=== PATIENT | male | born 1960 | race Caucasian/White ===

== ENCOUNTER 2017-08-19 12:51 | Emergency (ER) | payer OTHER ==
[2017-08-19 13:32] VITALS: BP 141/77
--- NOTE | 2017-08-19 14:03 | EDM.PDOC ---
ED HPI GENERAL MEDICAL PROBLEM - General Chief Complaint: Genitourinary Problem Stated Complaint: [id number] ROLANDO STRONG Time Seen by Provider: 08/19/17 13:38 Source of Information: Reports: Patient History Limitations: Reports: No Limitations - History of Present Illness INITIAL COMMENTS - FREE TEXT/NARRATIVE: Pt presents to the ER with c/o urinary retention. He states that in the past he has had an indwelling catheter and was taking Flomax and Tamulosin. He states the catheter was discontinued, and he was told that he was too young to be taking the prostate medications. These medications were discontinued about 1 year ago according to the patient. He states he has not urinated since 10pm last night. He states he doctors with the ID but they were out of the office today when he called. Onset: Today, Gradual Location: Reports: Abdomen Quality: Reports: Pressure Severity: Moderate Improves with: Reports: None Worsens with: Reports: None Associated Symptoms: Reports: No Other Symptoms Bladder Pain Score (Numeric/FACES): 7 - Related Data Allergies Allergy/AdvReac Type Severity Reaction Status Date / Time mushroom Allergy Vomiting Verified 08/19/17 13:04 Home Meds: Home Meds Ibuprofen [Advil] 200 mg PO Q6H PRN 04/23/16 [History] Past Medical History - Past Health History Medical/Surgical History: Denies Medical/Surgical History HEENT History: Reports: Hard of Hearing, Impaired Vision Cardiovascular History: Reports: None, High Cholesterol Respiratory History: Reports: None Gastrointestinal History: Reports: None Genitourinary History: Reports: BPH Musculoskeletal History: Reports: None Neurological History: Reports: None Psychiatric History: Reports: None Endocrine/Metabolic History: Reports: Other (See Below) Other Endocrine/Metabolic History: Hyperglycemia. Impaired glucose tolerance Hematologic History: Reports: None Immunologic History: Reports: None Oncologic (Cancer) History: Reports: None Dermatologic History: Reports: Other (See Below) Other Dermatologic History: Fascial cyst - Infectious Disease History Infectious Disease History: Reports: Chicken Pox - Past Surgical History GI Surgical History: Reports: Colonoscopy Dermatological Surgical History: Reports: Other (See Below) Social & Family History - Family History Family Medical History: Noncontributory - Tobacco Use Smoking Status *Q: Current Every Day Smoker Years of Tobacco use: 40 Packs/Tins Daily: 1 Second Hand Smoke Exposure: Yes - Caffeine Use Caffeine Use: Reports: Coffee - Alcohol Use Days Per Week of Alcohol Use: 0 - Recreational Drug Use Recreational Drug Use: No ED ROS GENERAL - Review of Systems Review Of Systems: ROS reveals no pertinent complaints other than HPI. ED EXAM, RENAL/ - Physical Exam Exam: See Below Exam Limited By: No Limitations General Appearance: Alert, WD/WN, No Apparent Distress Eye Exam: Bilateral Eye: Normal Inspection Ears: Normal External Exam, Hearing Grossly Normal Nose: Normal Inspection Throat/Mouth: Normal Inspection, Normal Oropharynx, Normal Voice, No Airway Compromise Head: Atraumatic, Normocephalic Neck: Normal Inspection, Supple, Non-Tender, Full Range of Motion Respiratory/Chest: No Respiratory Distress, No Accessory Muscle Use, Chest Non- Tender, Decreased Breath Sounds Cardiovascular: Normal Peripheral Pulses, Regular Rate, Rhythm, No Edema, No Gallop, No JVD, No Murmur, No Rub GI/Abdominal: Normal Bowel Sounds, Soft, Tender (Male) Exam: Normal Inspection Rectal (Males) Exam: Deferred Back Exam: Normal Inspection, Full Range of Motion Extremities: Normal Inspection, Normal Range of Motion, Non-Tender, No Pedal Edema, Normal Capillary Refill Neurological: Alert, Oriented, Normal Cognition, Normal Gait, Normal Reflexes, No Motor/Sensory Deficits Psychiatric: Normal Affect, Normal Mood Skin Exam: Warm, Dry, Intact, Normal Color, No Rash Lymphatic: No Adenopathy Course - Vital Signs Last Recorded V/S: Last Vital Signs Temp 98.3 F 08/19/17 13:15 Pulse 83 08/19/17 13:15 Resp 18 08/19/17 13:15 BP 141/77 H 08/19/17 13:15 Pulse Ox 98 08/19/17 13:15 - Orders/Labs/Meds Orders: Active Orders 24 hr Category Date Time Status Urinary Catheter Assessment [RC] ASDIRECTED Care 08/19/17 14:21 Active Labs: Laboratory Tests 08/19/17 Range/Units 14:05 Urine Color Yellow (YELLOW) Urine Appearance Slightly cloudy (CLEAR) Urine pH 5.5 (5.0-9.0) Ur Specific [place] 1.015 (1.005-1.030) Urine Protein Negative (NEGATIVE) Urine Glucose (UA) Negative (NEGATIVE) Urine Ketones Trace H (NEGATIVE) Urine Occult Blood Moderate H (NEGATIVE) Urine Nitrite Negative (NEGATIVE) Urine Bilirubin Negative (NEGATIVE) Urine Urobilinogen 0.2 (0.2-1.0) mg/dL Ur Leukocyte Esterase Negative (NEGATIVE) Urine RBC 50-75 H /HPF Urine WBC 0-5 (0-5/HPF) /HPF Ur Epithelial Cells Rare /HPF Urine Bacteria Rare (0-FEW/HPF) /HPF Departure - Departure Time of Disposition: 14:02 Disposition: Home, Self-Care 01 Condition: Good Clinical Impression: Retention of urine - Discharge Information Instructions: [facility] C[facility]ter Care, Adult Forms: ED Department Discharge Additional Instructions: [facility] - My Orders Last 24 Hours: My Active Orders 08/19/17 14:21 Urinary Catheter Assessment [RC] ASDIRECTED - Assessment/Plan Last 24 Hours: My Active Orders 08/19/17 14:21 Urinary Catheter Assessment [RC] ASDIRECTED
== END 2017-08-19 14:24 | disposition home or self-care (01) ==
LOC: DL.ED 12:51
DX: R33.9 Retention of urine, unspecified (principal); E78.00 Pure hypercholesterolemia, unspecified; F17.210 Nicotine dependence, cigarettes, uncomplicated; Z91.048 Other nonmedicinal substance allergy status
CPT/HCPCS: 51702; 81001; 99283

== ENCOUNTER → 2018-10-28 | Day surgery (SDC) | payer OTHER ==
[~2018-10-28] MED LIST: Acetaminophen/oxyCODONE 325-5 MG Tab PO ONE; Lactated Ringers 1,000 ML IV SCH; Lidocaine 1% 30 ML SDV INJECT ONE; Lidocaine 1% 30 ML SDV ONE; ceFAZolin 1 GM in Premix Bag 1 BAG IV ONE
--- NOTE | 2018-10-28 14:18 | OR ---
DATE: 10/28/2018 PREOPERATIVE DIAGNOSIS: Right inguinal hernia. POSTOPERATIVE DIAGNOSIS: Right inguinal hernia (indirect). PROCEDURE: Open repair of right indirect inguinal hernia with mesh. ANESTHESIA: General. ESTIMATED BLOOD LOSS: Minimal. SPECIMEN: Hernia sac. INDICATION FOR PROCEDURE: This 58-year-old male has a moderate-size right inguinal hernia. PROCEDURE IN DETAIL: After adequate preparation, a transverse incision was made over the right groin and carried down through the external oblique to expose the inguinal canal. The cord structures were elevated out of the inguinal canal, and the patient was noted to have an indirect sac. The sac was stripped free from the cord structures down to the deep inguinal ring. At that point, it was stick tied with an 0 Prolene suture and the sac amputated. A Prolene mesh was then used to sew and reinforce the inguinal floor. This was sewn in a running fashion inferiorly along the inguinal ligament and superiorly with interrupted sutures underneath the external oblique up to the rectus sheath. A keyhole had been cut in the mesh. This was encircled around the cord structures, and the tails of the mesh were sewn in place. Xylocaine was used to infiltrate the external oblique. The external oblique was closed with a 2-0 Vicryl and the skin with 4-0 Vicryl. [facility] /[id number]
[2018-10-31 08:10] VITALS: BP 116/63
== END ==
LOC: DL.SDS 07:54
PROVIDERS: ATTEND Surgery
DX: K40.90 Unilateral inguinal hernia, without obstruction or gangrene, not specified as recurrent (principal)
CPT/HCPCS: 49505; A9270; J0690; J7120